=== PATIENT | male | born 2000 | race Caucasian/White ===

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

== ENCOUNTER 2023-11-28 08:40 | Emergency (ER) | payer BC ==
[~2023-11-28] VITALS: Ht 167.6 cm; Wt 72.4 kg
[~2023-11-28 08:40] MED LIST: INSUHUMDS SC; MONT10TA97 PO; SYMB80INH INH; VENTAER INH; ZYRT10CA PO
[2023-11-28 11:40] VITALS: BP 118/67; TEMP 98; O2SAT 99
== END 2023-11-28 12:03 | disposition home or self-care (01) ==
LOC: M ED 08:40
DX: M79.672 Pain in left foot (principal); E10.9 Type 1 diabetes mellitus without complications; M43.24 Fusion of spine, thoracic region; Z79.4 Long term (current) use of insulin; Z79.899 Other long term (current) drug therapy